=== PATIENT | female | born 1985 | race Hispanic/Latino ===

== ENCOUNTER 2019-01-17 14:41 | Outpatient (CLI) | payer OTHER ==
--- NOTE | 2019-01-17 15:45 | ULT ---
Exam: Pelvic ultrasound HISTORY: Positive with no heart tones detected. Ultrasound examination requested for confirma tion.. COMPARISON: None TECHNIQUE: Multiple grayscale and color Doppler images were obtained in a transabdominal pelvic ultra sound. Spectral analysis of the Doppler waveforms of the ovaries were performed. FINDINGS: CERVIX: Grossly within normal limits where visualized. UTERUS: There is a fluid collection seen in the endometrial canal which does contain a pole and a yolk sac. The crown-rump length measures 0.87 cm corresponding to gestational age by ultrasound of 6 weeks and 6 days. No heart tones are detected on cardiac Doppler evaluation. heart t ones should be detected at this gestational age. No free fluid is present. RIGHT OVARY: There is an anechoic 3.4 cm cystic lesion right ovary most compatible with a cyst. Flow is documented in the right ovary. LEFT OVARY: Normal flow, without focal mass. IMPRESSION: 1. Evidence of single intrauterine gestation with gestational age by measurement of crown-rump length of 6 weeks and 6 days. However, no heart tones are detected. 2. Small right renal cyst.
== END 2019-01-17 14:42 | disposition home or self-care (01) ==
LOC: ULT 14:41
PROVIDERS: ATTEND Nurse Practitioner
DX: O09.91 Supervision of high risk pregnancy, unspecified, first trimester (principal); Z3A.01 Less than 8 weeks gestation of pregnancy; O26.831 Pregnancy related renal disease, first trimester
CPT/HCPCS: 76856

== ENCOUNTER 2020-09-12 13:27 | Emergency (ER) | payer OTHER ==
[2020-09-12 13:57] LABS: #Basophils 0.1 thou/uL (0.0-0.2); #Eosinphils 0.1 thou/uL (0.0-0.7); #Lymphocytes 0.7 thou/uL (1.20-3.40); #Monocytes 0.5 thou/uL (0.11-0.59); #Neutrophils 3.3 thou/uL (1.40-6.50); %Basophils 1.1 % (0.0-1.0); %Lymphocytes 15.2 % (21.0-51.0); %Monocytes 10.7 % (0.0-10.0); Hemoglobin 12.9 g/dL (12.0-16.0); Mean Corpuscular HGB CONC 33.1 g/dL (32.0-36.0); Mean Corpuscular Hemoglobin 27.8 pg (27.0-31.0); Mean Corpuscular Volume 83.9 fL (78.0-98.0); Mean Platelet Volume 8.3 fL (7.4-10.4); Platelet Count 249 thou/uL (130-400); Red Blood Cell (RBC) Count 4.66 mill/uL (4.20-5.40); White Blood Cell (WBC) Count 4.7 thou/uL (4.8-10.8)
[2020-09-12 14:13] LABS: ALT (SGPT) 9 U/L (8-55); AST (SGOT) 15 U/L (5-34); Albumin 4.5 g/dL (3.5-5.0); Alkaline Phosphatase 63 U/L (40-110); Anion Gap 14 mmol/L (10-20); BUN (Urea Nitrogen) 7 mg/dL (7.0-18.7); Bilirubin, Total 0.8 mg/dL (0.2-1.2); Calc. Creatinine Clearance 0 mL/min (70-130); Carbon Dioxide 23 mmol/L (22-29); Chloride 104 mmol/L (98-107); Globulin 3.7 g/dL (2.4-3.5); Glucose 100 mg/dL (70-105); Potassium 3.8 mmol/L (3.5-5.1); Protein, Total 8.2 g/dL (6.0-8.3); Sodium 137 mmol/L (136-145)
--- NOTE | 2020-09-12 16:22 | ULT ---
PELVIC ULTRASOUND: History: patient. Spotting. Technique: Transabdominal endovaginal imaging of the pelvis is performed. Ovaries are interrogated wi th grayscale, color flow, doppler imaging, and spectral waveform analysis. FINDINGS: Uterus is identified, without a myometrial mass. Uterus measures 5.7 x 7.2 x 10.1 cm. Within the endometrial sac, at the level of the uterine fundus, there is an anechoic focus measuring 1.7 x 1.7 cm. The anechoic focus may represent a gestational sac. Based upon the means sac diameter, gestational age would be 6 weeks 4 days. No evidence of a yolk sac or pole. No evidence of a barrientos bchorionic hemorrhage. Left and right ovary has a normal echo texture. Right ovary had a normal echo texture. Left ovary measures 2.2 x 1.0 x 2.3 cm. Right ovary measures 3.3 x 3.0 x 1.7 cm. No free fluid. OVARIAN DOPPLER: Vascular flow to the left and right ovary. IMPRESSION: Anechoic focus in the endometrium at the level of the fundus which may represent a gestational sac. N o evidence of yolk sac or pole. Differential concern includes an early intrauterine v ersus failed intrauterine . Follow up ultrasound and serial Beta HCGs are recommended. POS: PPP
== END 2020-09-12 16:50 | disposition home or self-care (01) ==
LOC: ERS 13:27
DX: O20.0 Threatened abortion (principal); Z3A.08 8 weeks gestation of pregnancy
CPT/HCPCS: 36415; 76856; 80053; 84702; 85025; 86900; 86901

== ENCOUNTER 2020-09-14 16:50 | Emergency (ER) | payer MEDICAID, OTHER ==
[2020-09-14 17:55] LABS: #Basophils 0.1 thou/uL (0.0-0.2); #Eosinphils 0.3 thou/uL (0.0-0.7); #Lymphocytes 1.3 thou/uL (1.20-3.40); #Monocytes 0.7 thou/uL (0.11-0.59); #Neutrophils 4.2 thou/uL (1.40-6.50); %Basophils 1.1 % (0.0-1.0); %Lymphocytes 19.6 % (21.0-51.0); %Monocytes 11.1 % (0.0-10.0); %Neutrophils 64.2 % (42.0-75.0); Hemoglobin 11.7 g/dL (12.0-16.0); Mean Corpuscular HGB CONC 33.2 g/dL (32.0-36.0); Mean Corpuscular Hemoglobin 27.9 pg (27.0-31.0); Mean Corpuscular Volume 83.9 fL (78.0-98.0); Mean Platelet Volume 8.4 fL (7.4-10.4); Platelet Count 234 thou/uL (130-400); RBC Distribution Width 12.9 % (11.5-14.5); White Blood Cell (WBC) Count 6.5 thou/uL (4.8-10.8)
[2020-09-14] MEDS ORDERED: Ibuprofen 800 MG TAB ONE (19:22)
== END 2020-09-14 19:26 | disposition home or self-care (01) ==
LOC: ERS 16:50
DX: O03.4 Incomplete spontaneous abortion without complication (principal)
CPT/HCPCS: 36415; 84702; 85025; 86900; 86901; 99284